=== PATIENT | female | born 1930 | race Hispanic/Latino ===

== ENCOUNTER 2019-03-24 10:44 | Emergency (ER) | payer MEDICARE ==
[2019-03-24 11:05] VITALS: BP 136/57
[2019-03-24] MEDS ORDERED: KETOROLAC 60 MG/2 ML INJ IM ONE (13:02)
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
== END 2019-03-24 15:40 | disposition home or self-care (01) ==
LOC: ED 10:44
DX: S22.31XA Fracture of one rib, right side, initial encounter for closed fracture (principal); I10 Essential (primary) hypertension; I21.9 Acute myocardial infarction, unspecified; Z98.890 Other specified postprocedural states; Z79.1 Long term (current) use of non-steroidal anti-inflammatories (NSAID); Z79.899 Other long term (current) drug therapy; V49.49XA Driver injured in collision with other motor vehicles in traffic accident, initial encounter; Y93.89 Activity, other specified; Y92.488 Other paved roadways as the place of occurrence of the external cause; Y99.8 Other external cause status
CPT/HCPCS: 71046; 93005; 93010; 96372; 99283; J1885